=== PATIENT | female | born 1965 | race American Indian/Alaskan Native ===

== ENCOUNTER 2018-04-05 21:07 | Emergency (ER) | payer MEDICAID ==
[2018-04-05 21:08] VITALS: BMI 23.4
[2018-04-05 21:13] VITALS: TEMP 98.7; O2SAT 98
[2018-04-05 21:27] VITALS: BP 148/88; PULSE 79; RESP 20
[2018-04-05] MEDS ORDERED: levoFLOXacin 500 MG TAB PO STA (22:20)
--- NOTE | 2018-04-05 22:38 | ED PDOC ---
HPI: General Adult Time Seen by Provider: 04/05/18 21:20 Chief Complaint (Nursing): Medical Clearance Chief Complaint (Provider): Medical Clearance History Per: Patient History/Exam Limitations: no limitations Onset/Duration Of Symptoms: Days Current Symptoms Are (Timing): Better Additional Complaint(s): 52 year old female with a history of Asthma presents to the ED for an evaluation for medical clearance for incarceration. Patient states she was diagnosed with pneumonia and has been taking antibiotics which she received from Urgent care located on [place], [place] for the past 3 day, except she missed her antibiotics today. Patient does not know the name of the medication. Patient states she wants to take her medication in the ED because she cannot take it at home due to incarceration. She reports the antibiotics has been helping her. Patient denies chest pain, vomiting, diarrhea, nausea, abdominal pain, rash, back pain, psychiatry problems or any other complaints. She is states she is feeling better and eating a tray of food in the ED. PMD: Non H Provider Past Medical History Reviewed: Historical Data, Nursing Documentation, Vital Signs Vital Signs: Last Vital Signs Temp 98.7 F 04/05/18 21:10 Pulse 79 04/05/18 21:26 Resp 20 04/05/18 21:26 BP 148/88 04/05/18 21:26 Pulse Ox 98 04/05/18 21:10 - Medical History PMH: Anxiety, Asthma, HIV, HTN Denies: Diabetes, Hepatitis, Chronic Kidney Disease, Seizures, Sexually Transmitted Disease - Surgical History Surgical History: (1x) - Family History Family History: States: Unknown Family Hx - Social History Current smoker - smoking cessation education provided: Yes Alcohol: Other (drinks every other day) Drugs: Denies - Immunization History Hx Tetanus Toxoid Vaccination: No Hx Influenza Vaccination: No Hx Pneumococcal Vaccination: Yes - Home Medications Home Medications: Ambulatory Orders Medication Instructions Recorded RX: Emtricita/Rilpivirine/Tenof Df 1 tab DAILY 07/31/15 [Complera Tablet] RX: Losartan [Cozaar] 100 mg PO DAILY #30 tab 07/18/16 RX: Losartan [Cozaar] 100 mg PO DAILY #30 tab 09/10/17 RX: traZODone [Desyrel] 50 mg PO HS PRN #30 tab 09/10/17 RX: Losartan [Cozaar] 50 mg PO DAILY tab 03/21/18 RX: Mirtazapine [Remeron] 15 mg PO HS tab 03/21/18 RX: Nicotine 21 mg/24 hr [Nicoderm 1 patch TD DAILY patch 03/21/18 Cq] - Allergies Allergies/Adverse Reactions: Allergies Allergy/AdvReac Type Severity Reaction Status Date / Time FISH Allergy RASH Verified 04/05/18 21:13 seafood Allergy RASH Uncoded 04/05/18 21:13 Review of Systems ROS Statement: Except As Marked, All Systems Reviewed And Found Negative Constitutional: Negative for: Fever Cardiovascular: Negative for: Chest Pain Respiratory: Positive for: Other (pneumonia) Gastrointestinal: Negative for: Nausea, Vomiting, Abdominal Pain, Diarrhea Genitourinary Female: Negative for: Dysuria, Frequency, Incontinence, Hematuria Skin: Negative for: Rash Neurological: Negative for: Weakness, Numbness, Headache Psych: Negative for: Suicidal ideation (homicidal ideation) Physical Exam - Reviewed Nursing Documentation Reviewed: Yes Vital Signs Reviewed: Yes - Physical Exam Appears: Positive for: Well, Non-toxic, No Acute Distress Head Exam: Positive for: ATRAUMATIC, NORMAL INSPECTION, NORMOCEPHALIC Skin: Positive for: Normal Color, Warm, Dry. Negative for: Rash Eye Exam: Positive for: EOMI, Normal appearance, PERRL ENT: Positive for: Normal ENT Inspection Neck: Positive for: Normal, Painless ROM, Supple. Negative for: Decreased ROM Cardiovascular/Chest: Positive for: Regular Rate, Rhythm. Negative for: Murmur Respiratory: Positive for: Normal Breath Sounds. Negative for: Decreased Breath Sounds, Wheezing, Respiratory Distress Gastrointestinal/Abdominal: Positive for: Normal Exam, Soft. Negative for: Tenderness Back: Positive for: Normal Inspection Extremity: Positive for: Normal ROM. Negative for: Tenderness, Pedal Edema, Deformity Neurologic/Psych: Positive for: Alert, Oriented (x3). Negative for: Motor/Sensory Deficits - ECG O2 Sat by Pulse Oximetry: 98 (RA) Pulse Ox Interpretation: Normal Medical Decision Making Medical Decision Making: Time: 2219 Initial Impression: medical clearance Initial Plan: Levaquin 500mg Reevaluation pt requesting the dose she missed today of her antibiotics. she thinks its levaquin. Upon provider reevaluation patient is feeling better, is medically stable, and requires no further treatment in the ED at this time. Patient will be discharged for incarceration. Counseling was provided and all questions were answered regarding diagnosis. There is agreement to discharge plan. Return if symptoms persist or worsen. Scribe Attestation: Documented by Kathia Curry, acting as a scribe for Ismael Niño MD. Provider Scribe Attestation: All medical record entries made by the Scribe were at my direction and personally dictated by me. I have reviewed the chart and agree that the record accurately reflects my personal performance of the history, physical exam, medical decision making, and the department course for this patient. I have also personally directed, reviewed, and agree with the discharge instructions and disposition. Disposition - Clinical Impression Clinical Impression: Pneumonia, Medical clearance for incarceration - Patient ED Disposition Is Patient to be Admitted: No - Disposition Disposition Time: 22:00 Condition: IMPROVED Additional Instructions: follow up with your doctor return to the ED with any worsening or concerning symptoms patient is medically and psychiatrically cleared for incarceration Instructions: Pneumonia, Adult (DC), General (DC) Forms: [employer] ([place] Citizen)
== END 2018-04-05 23:23 | disposition home or self-care (01) ==
LOC: H.ER 21:07
DX: J18.9 Pneumonia, unspecified organism (principal); F17.200 Nicotine dependence, unspecified, uncomplicated; I10 Essential (primary) hypertension; J45.909 Unspecified asthma, uncomplicated; Z00.8 Encounter for other general examination

== ENCOUNTER 2018-07-16 23:54 | Emergency (ER) | payer MEDICAID ==
[2018-07-17 00:07] VITALS: BMI 23.3
[2018-07-17 00:10] VITALS: TEMP 98.4
--- NOTE | 2018-07-17 01:40 | ED PDOC ---
HPI: General Adult Time Seen by Provider: 07/17/18 00:14 Chief Complaint (Nursing): Medical Clearance Chief Complaint (Provider): Medical Clearance History Per: Patient History/Exam Limitations: no limitations Additional Complaint(s): 52 years old female with a history of hypertension and heroin brought in under police arrest for medical and psychiatric clearance. Patient reports 2 days ago she injured her left rib when she fell. She reports pain with deep breaths and when she touches the area. PMD: None provided Past Medical History Reviewed: Historical Data, Nursing Documentation, Vital Signs Vital Signs: Last Vital Signs Temp 98.4 F 07/17/18 00:07 Pulse 78 07/17/18 00:07 Resp 18 07/17/18 00:07 BP 158/93 H 07/17/18 00:07 Pulse Ox 100 07/17/18 00:07 - Medical History PMH: Anxiety, Asthma, HIV, HTN Denies: Diabetes, Hepatitis, Chronic Kidney Disease, Seizures, Sexually Transmitted Disease - Surgical History Surgical History: (1x) - Family History Family History: States: Unknown Family Hx - Social History Current smoker - smoking cessation education provided: Yes (Cigarettes) Alcohol: None - Immunization History Hx Tetanus Toxoid Vaccination: No Hx Influenza Vaccination: No Hx Pneumococcal Vaccination: Yes - Home Medications Home Medications: Ambulatory Orders Medication Instructions Recorded Emtricita/Rilpivirine/Tenof Df 1 tab DAILY 07/31/15 [Complera Tablet] Losartan [Cozaar] 100 mg PO DAILY #30 tab 07/18/16 Losartan [Cozaar] 100 mg PO DAILY #30 tab 09/10/17 traZODone [Desyrel] 50 mg PO HS PRN #30 tab 09/10/17 Losartan [Cozaar] 50 mg PO DAILY tab 03/21/18 Mirtazapine [Remeron] 15 mg PO HS tab 03/21/18 Nicotine 21 mg/24 hr [Nicoderm Cq] 1 patch TD DAILY patch 03/21/18 - Allergies Allergies/Adverse Reactions: Allergies Allergy/AdvReac Type Severity Reaction Status Date / Time FISH Allergy RASH Verified 04/05/18 21:13 seafood Allergy RASH Uncoded 04/05/18 21:13 Review of Systems ROS Statement: Except As Marked, All Systems Reviewed And Found Negative Cardiovascular: Positive for: Chest Pain (Left sided rib pain) Physical Exam - Reviewed Nursing Documentation Reviewed: Yes Vital Signs Reviewed: Yes - Physical Exam Appears: Positive for: Well, No Acute Distress Head Exam: Positive for: ATRAUMATIC, NORMOCEPHALIC Skin: Positive for: Normal Color, Warm, Dry Eye Exam: Positive for: Normal appearance, EOMI, PERRL Neck: Positive for: Normal, Painless ROM, Supple Cardiovascular/Chest: Positive for: Regular Rate, Rhythm. Negative for: Chest Non Tender (tenderness on palpation of the anterior chest wall), Murmur Respiratory: Positive for: Normal Breath Sounds. Negative for: Respiratory Distress Gastrointestinal/Abdominal: Positive for: Normal Exam, Soft. Negative for: Tenderness Neurological/Psych: Positive for: Awake, Alert, Oriented (x3) - ECG O2 Sat by Pulse Oximetry: 100 (RA) Pulse Ox Interpretation: Normal Medical Decision Making Medical Decision Making: Time: 35 Initial Impression: 52 y/o female with reproducible chest pain Initial Plan: --Rib series --EKG --Crisis evalaution 0140 Patient evaluated by crisis and cleared for discharge. X-ray reviewed and shows no significant abnormality. ScribeAttestation: Documented Kimberley Landon, acting as a scribe for Margarito Tran MD. Provider ScribeAttestation: All medical record entries made by the Scribe were at my direction and personally dictated by me. I have reviewed the chart and agree that the record accurately reflects my personal performance of the history, physical exam, medical decision making, and the department course for this patient. I have also personally directed, reviewed, and agree with the discharge instructions and disposition. Disposition - Clinical Impression Clinical Impression: Medical clearance for incarceration, Opioid use disorder, severe, dependence - Patient ED Disposition Is Patient to be Admitted: No - Disposition Disposition: Discharged/Transfer to Law Enforcement Disposition Time: 01:40 Condition: STABLE Additional Instructions: Patient is medically and psychiatrically stable for incarceration Instructions: Opioid Use Disorder Forms: [facility] (Hungarian)
[2018-07-17 04:21] VITALS: BP 149/90; PULSE 72; RESP 17; O2SAT 99
--- NOTE | 2018-07-17 09:22 | RAD ---
Date of service: 07/17/2018 PROCEDURE: Radiographs of the Chest and Left Ribs. HISTORY: left rib pain COMPARISON: None available. TECHNIQUE: Frontal radiograph of the chest and multiple oblique radiographs of the left ribs were obtained. 4 views obtained. FINDINGS: LEFT RIBS: No fracture or focal lesion visualized. LUNGS: Clear. PLEURA: No pneumothorax or pleural fluid. CARDIOVASCULAR: Normal cardiac size. No pulmonary vascular congestion. No aortic atherosclerotic calcification present OTHER FINDINGS: None. IMPRESSION: Unremarkable radiographs of the chest and left ribs. No left rib fracture.
--- NOTE | 2018-07-17 15:07 | CARD ---
APPROVED REPORT Date of service: 07/17/2018 EKG Measurement Heart [id number] <Conclusion> Normal sinus rhythm Moderate voltage criteria for LVH, may be normal variant Borderline ECG
== END 2018-07-17 04:15 | disposition home or self-care (01) ==
LOC: H.ER 23:54
DX: F11.20 Opioid dependence, uncomplicated (principal); F17.210 Nicotine dependence, cigarettes, uncomplicated; F41.9 Anxiety disorder, unspecified; I10 Essential (primary) hypertension; J45.909 Unspecified asthma, uncomplicated

== ENCOUNTER 2018-09-01 02:29 | Emergency (ER) | payer MEDICAID ==
[2018-09-01 02:30] VITALS: BMI 23.3
[2018-09-01 02:37] VITALS: BP 144/90; PULSE 92; RESP 18; TEMP 97; O2SAT 97
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
== END 2018-09-01 03:20 | disposition home or self-care (01) ==
LOC: H.ER 02:29
DX: F10.10 Alcohol abuse, uncomplicated (principal); I10 Essential (primary) hypertension; J45.909 Unspecified asthma, uncomplicated